=== PATIENT | male | born 1950 ===

== ENCOUNTER 2019-04-01 10:44 | Inpatient (IN) ==
[2019-04-01] MEDS ORDERED: Isovue-370 500 ML BOTTLE IVP ONE ×2 (11:18→17:29)
[2019-04-01 11:57] LABS: Bilirubin,Urine Negative (Negative); Blood,Urine Trace (Negative); Clarity,Urine Clear (Clear); Glucose,Urine (UA) Normal (Normal); Ketones,Urine Negative (Negative); Leukocyte Esterase,Urine Negative (Negative); Nitrite,Urine Negative (Negative); Protein,Urine Negative (Neg-Trace); Urobilinogen,Urine Normal (Normal)
[2019-04-01 11:59] LABS: Bacteria,Urine None Seen per hpf (None-Few); Hyaline Casts,Urine None Seen per lpf (None-Few); RBC,Urine 0-3 per hpf (0-3); Squamous Epithelial Cell,Urine None Seen per lpf (None-Few); WBC,Urine 0-3 per hpf (0-3)
[2019-04-01 12:06] LABS: Amphetamine Screen,Urine Negative ng/mL (Cutoff=1000); Barbiturate Screen,Urine Negative ng/mL (Cutoff=200); Benzodiazepines Screen,Urine Negative ng/mL (Cutoff=200); Cannabinoid Screen,Urine Negative ng/mL (Cutoff = 50); Cocaine Screen,Urine Negative ng/mL (Cutoff= 300); Opiate Screen,Urine Negative ng/mL (Cutoff=300); Phencyclidine Screen,Urine Negative ng/mL (Cutoff=25)
[2019-04-01 12:08] LABS: Color,Urine Yellow (Yellow)
[2019-04-01 12:24] LABS: Hematocrit 42.4 % (37.5-50.1); Hemoglobin 14.8 g/dL (12.9-16.9); Mean Corpuscular HGB Conc 34.9 g/dL (31.6-35.5); Mean Corpuscular Hemoglobin 33.5 pg (28.0-33.3); Mean Corpuscular Volume 95.9 fL (83.0-100.0); Mean Platelet Volume 9.6 fL (9.4-12.4); Platelet Count 165 K/mcL (140-400); Red Blood Count 4.42 M/mcL (4.19-5.50); Red Cell Distribution Width 13.2 % (11.5-14.5)
[2019-04-01 12:32] LABS: Activated Partial Thrombo Time 32.1 Seconds (26.0-36.0)
[2019-04-01 12:44] LABS: BUN/Creatinine Ratio 12 (6-26); Blood Urea Nitrogen 10 mg/dL (8-23); Calcium 9.9 mg/dL (8.6-10.3); Carbon Dioxide 26 mEq/L (23-29); Chloride 103 mEq/L (98-107); Glucose 104 mg/dL (70-105); Osmolality,Calculated 281 (280-300); Potassium 4.2 mEq/L (3.5-5.1); Sodium 136 mEq/L (136-145); eGFR For African Americans > 60 (> 60); eGFR For Non-African Americans > 60 (> 60)
[2019-04-01] MEDS ORDERED: *HR* Heparin 5,000 UNIT/ML VIAL IVP ONE (17:29)
[2019-04-01] MEDS ORDERED: *HR* Heparin 5,000 UNIT/ML VIAL IVP PRN ×2 (17:29)
[2019-04-01] MEDS ORDERED: Naloxone 0.4 MG/ML INJ IVP PRN (17:54)
[2019-04-01] MEDS: Heparin 25,000 UNIT/250 ML D5W 25,000 UNIT/250 ML IV.SOLN IVC SCH (18:07)
[2019-04-01] MEDS: Mirtazapine 15 MG TABLET PO SCH (23:37)
[2019-04-02 01:14] LABS: Basophils # 0.1 K/mcL (0.0-0.2); Basophils % 0.7 %; Eosinophils # 0.1 K/mcL (0.0-0.6); Eosinophils % 1.9 %; Hematocrit 40.9 % (37.5-50.1); Hemoglobin 14.5 g/dL (12.9-16.9); Immature Granulocytes % 0.7 % (0-4); Lymphocytes # 1.1 K/mcL (0.6-4.6); Lymphocytes % 15.6 %; Mean Corpuscular HGB Conc 35.5 g/dL (31.6-35.5); Mean Corpuscular Hemoglobin 33.6 pg (28.0-33.3); Mean Corpuscular Volume 94.7 fL (83.0-100.0); Mean Platelet Volume 9.7 fL (9.4-12.4); Monocytes # 0.8 K/mcL (0.0-1.3); Monocytes % 11.7 %; Neutrophils # 4.7 K/mcL (1.6-8.9); Platelet Count 161 K/mcL (140-400); Red Blood Count 4.32 M/mcL (4.19-5.50); Red Cell Distribution Width 13.2 % (11.5-14.5); Segmented Neutrophils % 69.4 %; White Blood Count 6.8 K/mcL (4.3-11.1)
[2019-04-02 01:33] LABS: Alanine Aminotransferase 20 Units/L (7-52); Albumin 4.1 g/dL (3.5-5.7); Albumin/Globulin Ratio 1.2 (1.1-2.2); Alkaline Phosphatase 58 Units/L (34-104); Aspartate Amino Transferase 28 Units/L (13-39); BUN/Creatinine Ratio 12 (6-26); Bilirubin,Total 0.7 mg/dL (0.3-1.0); Blood Urea Nitrogen 10 mg/dL (8-23); Calcium 9.7 mg/dL (8.6-10.3); Carbon Dioxide 23 mEq/L (23-29); Chloride 104 mEq/L (98-107); Chol/HDL Ratio 2.4 (0-4.9); Cholesterol 152 mg/dL (< 200); Globulin 3.4 g/dL (2.4-3.5); Glucose 113 mg/dL (70-105); HDL Cholesterol 63 mg/dL (40-59); LDL Cholesterol,Calculated 73 mg/dL (0-99); Osmolality,Calculated 280 (280-300); Potassium 3.9 mEq/L (3.5-5.1); Sodium 135 mEq/L (136-145); Total Protein 7.5 g/dL (6.4-8.9); Triglycerides 81 mg/dL (< 150); eGFR For African Americans > 60 (> 60); eGFR For Non-African Americans > 60 (> 60)
[2019-04-02] MEDS: Cyanocobalamin (B-12) 1,000 MCG TABLET PO SCH (08:00)
[2019-04-02] MEDS: levoFLOXacin 750 MG TABLET PO SCH (08:00)
[2019-04-02] MEDS: predniSONE 20 MG TABLET PO SCH (08:00)
[2019-04-02] MEDS: Heparin 25,000 UNIT/250 ML D5W 25,000 UNIT/250 ML IV.SOLN IVC SCH (16:54)
[2019-04-02] MEDS: Mirtazapine 15 MG TABLET PO SCH (21:10)
[2019-04-03] MEDS: levoFLOXacin 750 MG TABLET PO SCH (08:53)
[2019-04-03] MEDS: Cyanocobalamin (B-12) 1,000 MCG TABLET PO SCH (08:53)
[2019-04-03] MEDS: predniSONE 20 MG TABLET PO SCH (08:53)
[2019-04-03 11:27] VITALS: BP 158/85
[2019-04-03] MEDS ORDERED: *HR* Rivaroxaban 15 MG TABLET PO ONE (14:34)
== END 2019-04-03 15:54 | disposition home or self-care (01) | DRG 123 ==
LOC: EMEROOARM 10:44 → 2NENU 10:44 → SUATTDRO 20:20
PROVIDERS: ADMIT Internal Medicine; ATTEND Internal Medicine

== ENCOUNTER 2020-04-17 15:10 | Inpatient (IN) ==
[2020-04-17] MEDS ORDERED: Naloxone 0.4 MG/ML INJ IVP PRN (18:23)
[2020-04-17] MEDS ORDERED: Perflutren Lipid Microsphere 1.3 ML in 0.9 % Sodium Chloride 8.7 ML IVP PRN (18:27)
[2020-04-17] MEDS ORDERED: *HR* Heparin 5,000 UNIT/ML VIAL IVP PRN (18:38)
[2020-04-17 19:03] LABS: Heparin anti-factor XA UFH 0.63 IU/mL (0.30-0.70); INR 1.1; Prothrombin Time 12.6 Seconds (9.4-12.1)
[2020-04-17 19:06] LABS: Activated Partial Thrombo Time 72.3 Seconds (26.0-36.0)
[2020-04-17 19:22] LABS: Alanine Aminotransferase 17 Units/L (7-52); Albumin 3.6 g/dL (3.5-5.7); Albumin/Globulin Ratio 1.2 (1.1-2.2); Alkaline Phosphatase 50 Units/L (34-104); Aspartate Amino Transferase 26 Units/L (13-39); BUN/Creatinine Ratio 11 (6-26); Bilirubin,Direct 0.1 mg/dL (0.0-0.2); Bilirubin,Indirect 0.6 mg/dL (0.0-1.0); Bilirubin,Total 0.7 mg/dL (0.3-1.0); Blood Urea Nitrogen 7 mg/dL (8-23); Calcium 9.3 mg/dL (8.6-10.3); Carbon Dioxide 27 mEq/L (23-29); Chloride 104 mEq/L (98-107); Chol/HDL Ratio 2.7 (0-4.9); Cholesterol 128 mg/dL (< 200); Globulin 2.9 g/dL (2.4-3.5); Glucose 100 mg/dL (70-105); HDL Cholesterol 47 mg/dL (40-59); LDL Cholesterol,Calculated 64 mg/dL (< 100); Magnesium 1.7 mg/dL (1.6-2.6); Osmolality,Calculated 288 (280-300); Phosphorous 2.7 mg/dL (2.7-4.5); Sodium 140 mEq/L (136-145); Total Protein 6.5 g/dL (6.4-8.9); Triglycerides 87 mg/dL (< 150); eGFR For African Americans > 60 (> 60); eGFR For Non-African Americans > 60 (> 60)
[2020-04-17 19:35] LABS: Thyroid Stimulating Hormone 1.613 mcIU/mL (0.340-5.600)
[2020-04-17] MEDS ORDERED: 0.9 % Sodium Chloride 500 ML IVC ONE (22:35)
[2020-04-17] MEDS: Heparin 25,000UNIT/250ML 1/2NS 25,000 UNIT/250 ML IV.SOLN IVC SCH (22:37)
[2020-04-18 01:30] LABS: Basophils % 0.6 %; Eosinophils # 0.1 K/mcL (0.0-0.6); Eosinophils % 1.1 %; Hematocrit 32.7 % (37.5-50.1); Immature Granulocytes % 0.3 % (0-4); Mean Corpuscular HGB Conc 33.6 g/dL (31.6-35.5); Mean Corpuscular Hemoglobin 32.3 pg (28.0-33.3); Mean Corpuscular Volume 95.9 fL (83.0-100.0); Mean Platelet Volume 10.7 fL (9.4-12.4); Monocytes # 0.4 K/mcL (0.0-1.3); Monocytes % 5.5 %; Platelet Count 202 K/mcL (140-400); Red Blood Count 3.41 M/mcL (4.19-5.50); Red Cell Distribution Width 13.8 % (11.5-14.5); Segmented Neutrophils % 76.5 %; White Blood Count 6.5 K/mcL (4.3-11.1)
[2020-04-18] MEDS ORDERED: 0.9 % Sodium Chloride 500 ML IVC ONE (02:41)
[2020-04-18] MEDS: Heparin 25,000UNIT/250ML 1/2NS 25,000 UNIT/250 ML IV.SOLN IVC SCH (03:56)
[2020-04-18] MEDS: Aspirin 81 MG TAB.CHEW PO SCH (09:08)
[2020-04-18] MEDS ORDERED: levoFLOXacin 750 MG/150 ML 750 MG/150 ML BAG IVPB SCH (14:00)
[2020-04-18] MEDS: Ipratropium/Albuterol Neb 3 ML IH SCH ×3 (15:41→22:50)
[2020-04-18] MEDS: MethylPREDNISolone 40 MG/ML VIAL IVP SCH ×2 (16:19→23:05)
[2020-04-18] MEDS: *HR* Heparin 5,000 UNIT/ML VIAL IVP PRN (23:07)
[2020-04-19] MEDS: Ipratropium/Albuterol Neb 3 ML IH SCH ×6 (03:10→23:21)
[2020-04-19] MEDS: Heparin 25,000UNIT/250ML 1/2NS 25,000 UNIT/250 ML IV.SOLN IVC SCH (03:41)
[2020-04-19 06:20] LABS: Hematocrit 32.7 % (37.5-50.1); Hemoglobin 10.9 g/dL (12.9-16.9); Mean Corpuscular HGB Conc 33.3 g/dL (31.6-35.5); Mean Corpuscular Hemoglobin 32.8 pg (28.0-33.3); Mean Corpuscular Volume 98.5 fL (83.0-100.0); Mean Platelet Volume 10.9 fL (9.4-12.4); Platelet Count 161 K/mcL (140-400); Red Blood Count 3.32 M/mcL (4.19-5.50); Red Cell Distribution Width 13.2 % (11.5-14.5); White Blood Count 3.5 K/mcL (4.3-11.1)
[2020-04-19] MEDS: *HR* Heparin 5,000 UNIT/ML VIAL IVP PRN (06:37)
[2020-04-19 06:43] LABS: BUN/Creatinine Ratio 17 (6-26); Blood Urea Nitrogen 11 mg/dL (8-23); Calcium 9.1 mg/dL (8.6-10.3); Carbon Dioxide 24 mEq/L (23-29); Chloride 103 mEq/L (98-107); Glucose 191 mg/dL (70-105); Osmolality,Calculated 285 (280-300); Sodium 135 mEq/L (136-145); eGFR For African Americans > 60 (> 60); eGFR For Non-African Americans > 60 (> 60)
[2020-04-19] MEDS: MethylPREDNISolone 40 MG/ML VIAL IVP SCH (08:27)
[2020-04-19] MEDS: Aspirin 81 MG TAB.CHEW PO SCH ×2 (08:32→12:09)
[2020-04-19] MEDS ORDERED: ISOVUE-370 200 ML INFUS..BTL ONE (08:47)
[2020-04-19] MEDS ORDERED: Heparin 1,000 UNITS/500 mL 500 ML ONE (08:47)
[2020-04-19] MEDS ORDERED: *HR* Heparin 10,000 UNIT/10 ML VIAL ONE (08:47)
[2020-04-19] MEDS ORDERED: 0.9 % Sodium Chloride 2,000 ML ONE (08:47)
[2020-04-19] MEDS ORDERED: Nitroglycerin 1,000 MCG/10 ML VIAL IV ONE (08:47)
[2020-04-19] MEDS ORDERED: *HR* OxyCODONE/APAP 5/325 TABLET PO PRN (09:09)
[2020-04-19] MEDS ORDERED: *HR* Midazolam HCl 2 MG/2 ML VIAL ONE (09:31)
[2020-04-19] MEDS ORDERED: *HR* FentaNYL (PF) 100 MCG/2 ML VIAL ONE (09:32)
[2020-04-19] MEDS ORDERED: Nitroglycerin Spray 4.9 GM BOTTLE ONE (09:40)
[2020-04-19] MEDS: Cyanocobalamin (B-12) 1,000 MCG TABLET PO SCH (12:10)
[2020-04-19] MEDS: predniSONE 20 MG TABLET PO SCH (12:23)
[2020-04-19] MEDS: *HR* Enoxaparin 40 MG/0.4 ML SYRINGE SQ SCH (13:17)
[2020-04-19] MEDS: levoFLOXacin 750 MG TABLET PO SCH (17:32)
[2020-04-20] MEDS: Ipratropium/Albuterol Neb 3 ML IH SCH ×2 (03:32→08:12)
[2020-04-20] MEDS: *HR* Enoxaparin 40 MG/0.4 ML SYRINGE SQ SCH (06:03)
[2020-04-20] MEDS ORDERED: GuaiFENesin Liq 200 MG/10 ML UDC PO SCH (07:37)
[2020-04-20] MEDS: Cyanocobalamin (B-12) 1,000 MCG TABLET PO SCH (07:43)
[2020-04-20] MEDS: predniSONE 20 MG TABLET PO SCH (07:44)
[2020-04-20] MEDS: levoFLOXacin 750 MG TABLET PO SCH (07:45)
[2020-04-20 07:59] VITALS: BP 177/103
== END 2020-04-20 10:58 | disposition home or self-care (01) | DRG 280 ==
LOC: 2NNU → SUATTDRO 04-18 18:32
PROVIDERS: ADMIT Internal Medicine; ATTEND Internal Medicine

== ENCOUNTER 2020-06-06 14:36 | Observation (INO) ==
[2020-06-06] MEDS ORDERED: Naloxone 0.4 MG/ML INJ IVP PRN (18:16)
[2020-06-06] MEDS ORDERED: Ondansetron 4 MG/2 ML VIAL IVP PRN (18:16)
[2020-06-06] MEDS ORDERED: Acetaminophen 325 MG TABLET PO PRN (18:16)
[2020-06-06] MEDS ORDERED: Diphenoxylate/Atropine 1 TAB TABLET PO PRN (22:57)
[2020-06-07] MEDS: Cefepime HCl 2,000 MG in Water for inj. (sterile) 20 ML IVP SCH ×2 (02:02→08:01)
[2020-06-07] MEDS: Ipratropium/Albuterol Neb 3 ML IH PRN ×3 (02:10→19:36)
[2020-06-07] MEDS ORDERED: Acetylcysteine 10% 2 ML INHSOL IH ONE (02:17)
[2020-06-07 02:57] LABS: Basophils % 0.1 %; Hematocrit 40.5 % (37.5-50.1); Hemoglobin 13.1 g/dL (12.9-16.9); Immature Granulocytes % 0.7 % (0-4); Lymphocytes # 0.8 K/mcL (0.6-4.6); Lymphocytes % 8.4 %; Mean Corpuscular HGB Conc 32.3 g/dL (31.6-35.5); Mean Corpuscular Hemoglobin 31.9 pg (28.0-33.3); Mean Corpuscular Volume 98.5 fL (83.0-100.0); Monocytes # 1.1 K/mcL (0.0-1.3); Monocytes % 11.7 %; Neutrophils # 7.2 K/mcL (1.6-8.9); Platelet Count 181 K/mcL (140-400); Red Blood Count 4.11 M/mcL (4.19-5.50); Red Cell Distribution Width 13.2 % (11.5-14.5); Segmented Neutrophils % 79.1 %
[2020-06-07 03:15] LABS: BUN/Creatinine Ratio 35 (6-26); Blood Urea Nitrogen 25 mg/dL (8-23); Calcium 9.7 mg/dL (8.6-10.3); Carbon Dioxide 26 mEq/L (23-29); Chloride 103 mEq/L (98-107); Glucose 131 mg/dL (70-105); Magnesium 2.3 mg/dL (1.6-2.6); Osmolality,Calculated 292 (280-300); Sodium 138 mEq/L (136-145); eGFR For African Americans > 60 (> 60); eGFR For Non-African Americans > 60 (> 60)
[2020-06-07] MEDS: Acetylcysteine 10% 2 ML INHSOL IH SCH ×4 (04:31→19:36)
[2020-06-07] MEDS: Ipratropium/Albuterol Neb 3 ML IH SCH ×2 (04:31→10:20)
[2020-06-07] MEDS ORDERED: *HR* HYDROcodone/Acet 5/325 mg TABLET PO PRN (06:31)
[2020-06-07] MEDS ORDERED: *HR* OxyCODONE Immed Rel 5 MG TABLET PO PRN ×2 (06:31→08:00)
[2020-06-07] MEDS ORDERED: *HR* HYDROmorphone PF 0.5 MG/0.5 ML SYRINGE IVP PRN ×2 (08:00→08:51)
[2020-06-07] MEDS ORDERED: Ondansetron 4 MG/2 ML VIAL IVP PRN ×2 (08:00→08:51)
[2020-06-07] MEDS ORDERED: Promethazine 6.25 MG in Water for inj. (sterile) 20 ML IVPB PRN ×2 (08:00→08:51)
[2020-06-07] MEDS: *HR* Heparin 5,000 UNIT/ML VIAL SQ SCH ×2 (08:02→16:56)
[2020-06-07] MEDS ORDERED: *HR* Propofol 200 MG/20 ML VIAL IVP ONE ×3 (08:50→09:36)
[2020-06-07] MEDS ORDERED: Lidocaine -MPF 2% 2 ML VIAL ONE ×2 (08:50→08:54)
[2020-06-07] MEDS: 0.9 % Sodium Chloride 1,000 ML IVC SCH (08:50)
[2020-06-07] MEDS ORDERED: *HR* OxyCODONE/APAP 5/325 TABLET PO PRN (08:51)
[2020-06-07] MEDS ORDERED: Aspirin Enteric Coated 81 MG Tablet PO SCH (09:00)
[2020-06-07] MEDS ORDERED: Lidocaine Viscous Oral Soln 15 ML SOLUTION ONE (09:05)
[2020-06-07] MEDS ORDERED: EPHEDrine 50 MG/ML VIAL ONE (09:26)
[2020-06-07] MEDS ORDERED: *HR* EPINEPHrine 1 MG/10 ML SYRINGE INTRATRACH PRN (09:34)
[2020-06-07] MEDS: predniSONE 20 MG TABLET PO SCH (10:30)
[2020-06-07] MEDS: lisinopriL 20 MG TABLET PO SCH (10:30)
[2020-06-07] MEDS: Albuterol 2.5 MG/3 ML NEBULIZER IH SCH ×3 (15:48→22:59)
[2020-06-07] MEDS: Ipratropium Neb 0.5 MG NEBULIZER IH SCH ×3 (15:48→22:59)
[2020-06-08] MEDS: Albuterol 2.5 MG/3 ML NEBULIZER IH SCH ×4 (03:40→15:08)
[2020-06-08] MEDS: Ipratropium Neb 0.5 MG NEBULIZER IH SCH ×4 (03:40→15:08)
[2020-06-08] MEDS: Acetylcysteine 10% 2 ML INHSOL IH SCH ×3 (03:40→15:08)
[2020-06-08] MEDS: 0.9 % Sodium Chloride 1,000 ML IVC SCH (05:44)
[2020-06-08] MEDS: *HR* Heparin 5,000 UNIT/ML VIAL SQ SCH (05:44)
[2020-06-08] MEDS: lisinopriL 20 MG TABLET PO SCH (08:01)
[2020-06-08] MEDS: predniSONE 20 MG TABLET PO SCH (08:02)
[2020-06-08] MEDS ORDERED: Aspirin 81 MG TAB.CHEW PO SCH ×2 (08:15→09:00)
[2020-06-08] MEDS ORDERED: HYDROcodone/Acet 5-217 mg/10mL 10 ML UDC PO PRN (08:30)
[2020-06-08] MEDS: Amoxicillin/Clavulanate 400 MG/5 ML UDC PO SCH ×2 (08:43→15:11)
[2020-06-08] MEDS ORDERED: Potassium Chloride Elixir 20 MEQ/15 ML UDC PO SCH (09:00)
[2020-06-08 10:49] VITALS: BP 96/63
== END 2020-06-08 15:45 | disposition home or self-care (01) ==
LOC: 2NENU
PROVIDERS: ADMIT Internal Medicine; ATTEND Internal Medicine